=== PATIENT | female | born 1940 | race Caucasian/White ===

== ENCOUNTER → 2023-12-20 13:44 | Outpatient (REF) | payer OTHER, SELFPAY | LOC: WDC 13:44 | PROVIDERS: ATTENDING PHYSICIAN Internal Medicine | DX: Z12.31 Encounter for screening mammogram for malignant neoplasm of breast (principal) | CPT/HCPCS: 77063; 77067 ==

== ENCOUNTER → 2024-01-09 06:39 | Day surgery (SDC) | payer OTHER, SELFPAY | LOC: GI 06:39 | PROVIDERS: ATTENDING PHYSICIAN Internal Medicine Gastroenterology; FAMILY PHYSICIAN Internal Medicine | DX: D12.0 Benign neoplasm of cecum (principal); K57.30 Diverticulosis of large intestine without perforation or abscess without bleeding; K64.8 Other hemorrhoids; R19.4 Change in bowel habit; R15.9 Full incontinence of feces | CPT/HCPCS: 45380; 88305 ==

== ENCOUNTER 2024-01-24 11:54 | Outpatient (RCR) | payer OTHER, SELFPAY | END 2024-01-24 23:59 | disposition home or self-care (01) | LOC: RPT 11:54 | PROVIDERS: ATTENDING PHYSICIAN Internal Medicine Gastroenterology | DX: R15.9 Full incontinence of feces (principal); M62.89 Other specified disorders of muscle; Z73.6 Limitation of activities due to disability; Z98.890 Other specified postprocedural states | CPT/HCPCS: 97112; 97162; 97530 ==

== ENCOUNTER 2024-02-21 10:54 | Outpatient (RCR) | payer OTHER, SELFPAY | END 2024-02-21 23:59 | disposition home or self-care (01) | LOC: RPT 10:54 | PROVIDERS: ATTENDING PHYSICIAN Internal Medicine Gastroenterology | DX: R15.9 Full incontinence of feces (principal); M62.89 Other specified disorders of muscle; Z73.6 Limitation of activities due to disability; Z98.890 Other specified postprocedural states | CPT/HCPCS: 97014; 97112; 97530 ==

== ENCOUNTER 2024-04-03 11:49 | Outpatient (RCR) | payer OTHER, SELFPAY | END 2024-04-03 13:56 | disposition home or self-care (01) | LOC: RPT 11:49 | PROVIDERS: ATTENDING PHYSICIAN Internal Medicine Gastroenterology | DX: R15.9 Full incontinence of feces (principal); M62.89 Other specified disorders of muscle; Z73.6 Limitation of activities due to disability; Z98.890 Other specified postprocedural states | CPT/HCPCS: 97014; 97110 ==

== ENCOUNTER → 2024-12-24 14:38 | Outpatient (REF) | payer OTHER, SELFPAY | LOC: WDC 14:38 | PROVIDERS: ATTENDING PHYSICIAN Obstetrics & Gynecology; FAMILY PHYSICIAN Internal Medicine | DX: Z12.31 Encounter for screening mammogram for malignant neoplasm of breast (principal) | CPT/HCPCS: 77063; 77067 ==